=== PATIENT | female | born 1945 | race Caucasian/White ===

== ENCOUNTER 2018-12-22 10:46 | Emergency (ER) | payer MEDICARE ==
[~2018-12-22] VITALS: Ht 157.5 cm; Wt 63.5 kg
--- NOTE | 2018-12-22 11:49 | NUR ---
PATIENT WAS SEEN BY MD. XRAYS COMPLETE. SMILEY WRAP APPLIED PER MD. DC AND FOLLOW UP INSTRUCTIONS GIVEN AND EXPLAINED TO PATIENT WHO STATES SHE UNDERSTANDS ALL INSTRUCTIONS.
== END 2018-12-22 11:51 | disposition home or self-care (01) ==
LOC: ER 10:46 → EDBD 10:46 → ER 11:51
DX: S63.502A Unspecified sprain of left wrist, initial encounter (principal); Z88.2 Allergy status to sulfonamides; W18.30XA Fall on same level, unspecified, initial encounter; Y93.89 Activity, other specified; Y92.89 Other specified places as the place of occurrence of the external cause; Y99.8 Other external cause status
CPT/HCPCS: 73110; A4663